=== PATIENT | male | born 1990 | race Caucasian/White ===

== ENCOUNTER 2019-07-30 09:44 | Outpatient (CLI) | payer OTHER ==
--- NOTE | 2019-07-30 10:23 | SLEEP CARE CONSULTATION ---
Information from patient questionnaire entered by Sarah Magaña. I have reviewed and concur with the information entered by Sarah Magaña. This document represents the service I personally performed and the decisions made by me, Kaleb Squires MD, [facility]. History of Present Illness Reason for Visit: New patient Chief Complaint: reports: Snoring, Observed pauses in breathing, Other (TEETH GRINDING) Duration of Symptoms: 5+ YEARS Usual bedtime: 3600-7128 Time it takes to fall asleep: 30 MINUTES Snores at night: Yes Observed to quit breathing while asleep: Yes Sleeps alone due to snoring: No Number of times waking at night: 2-3 Toss, Turn, or Twitch while sleeping: Yes Recalls having dreams: No Usually gets out of bed at: 9824-6503 Feels refreshed in the morning: No Morning headache: Yes (SOMETIMES) Sleepy or fatigued during the day: Yes Ever fallen asleep while driving: No Takes day naps: No Dreams during day naps: No Prior sleep studies: No Additional HPI information: I had the pleasure of seeing Mr. Ureña along with his today regarding the possibility of him having a sleep disorder. As you know, he is a 29 year old gentleman who complains of loud snore, teeth grinding, and observed apneas. The patient tells me that he normally goes to bed around 8:30 - 9 pm, and it takes him approximately 30 minutes to fall asleep. He has been told that he snores loudly and irregularly at night. He has also been observed to stop breathing in his sleep. His can still sleep in the same bed. He can recall waking up on the average of 2 3 times during the night. Most of the time he wakes up because of no reasons. He has awakened occasionally because of his own snoring, choking, and having to gasp for air. There is a lot of tossing and turning in his sleep. He has somniloquy (sleep talking) but not somnambulism (sleep walking). He wears a bruxism mouth guard. Generally there is no recollection of dreams. In the morning he usually gets up out of the bed around 5 - 6 a.m. not feeling refreshed nor rested. He occasional has a morning headache that lasts hours. During the day he complains of feeling sleepy and fatigued. His score on [place] Sleepiness Scale is 13 out of 24. He has never fallen asleep while driving nor has had any accident due to sleepiness. He usually does not take naps during the day. Upon falling asleep during the day he denies having vivid dreams. He has never had sleep paralysis, experienced cataplexy or symptoms of restless leg syndrome. He denies having impaired concentration during the day. 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 Patient is and lives in [place]. Have you smoked in the past 12 months: Yes Cigarettes per day (20/pack): 20 Years of smokin Quit date: 2013 Smoking Pack Years: 9.0 Alcohol use: Yes Alcohol amount and frequency: 1-2 DRINKS, 1-2 TIMES/MONTH Caffeine use: Yes Caffeine amount and frequency: 12 OZ/MORNING Family History Family history of sleep disordered breathing: Yes Family Hx Sleep Apnea: Father: Snoring Allergies and Home Medications Drug allergies reviewed: Yes Home medication list reviewed: Yes Review of Systems Cardiovascular: reports: leg or foot swelling (ON PLANES) Respiratory: denies: shortness of breath, wheeze, sputum production, chronic cough, other Gastrointestinal: reports: heartburn Urinary: denies: incontinence, frequency, urgency, impotence, other Neurological: reports: headaches (MIGRAINES) Psychiatric: denies: Attention Deficit Hyperactivity, anxiety, depression, mood disorder, claustrophobia, other Ear/Nose/Throat: reports: nose bleeds, wisdom teeth removed Endocrine: denies: thyroid disease, history of goiter, sluggishness, too hot or cold, excessive thirst, increased appetite, increased urination, unexplained weakness, other Musculoskeletal: reports: joint pain, neck pain, back pain Physical Exam Vital signs obtained and entered by: Dr. Squires Blood Pressure: 90/50 Cuff size: long Heart Rate: 71 O2 Saturation: 98 Height: 5 ft 8 in Weight (kg): 185 lb Body Mass Index: 28.1 BMI Classification: Overweight Neck circumference: 15 Mood/affect: normal HEENT: No craniofacial malformation Nostrils: patent to airflow Turbinates: normal Septum: midline Mouth and throat: normal Soft palate: long Hard palate: normal Uvula: normal Uvula visualization: 50% Mallampati Class II Tongue: normal in size Tonsils: small Chin and jaw: normal size and position Neck: normal w/o lymphadenopathy or thyromegaly Heart: regular rate and rhythm Lungs: clear bilaterally Abdomen: soft, non-tender Extremities: no edema or clubbing Neurologic: intact, no focal deficits Impression and Plan IMPRESSION: 1. Obstructive Sleep Apnea-Hypopnea Syndrome, as suggested by history of loud and irregular snoring, observed cessation of breath while asleep, frequent awakenings during the night, unrefreshed sleep, morning headache, and daytime hypersomnolence. Narrow oropharynx and obesity are common predisposing factors for obstructive sleep apnea-hypopnea syndrome. Pathophysiology of sleep- disordered breathing was discussed. I recommend proceeding to polysomnography to confirm the diagnosis and to assess severity. If he has significant sleep disordered breathing, a manual CPAP titration study will also be performed to find the optimal treatment pressure. I informed the patient of what the sleep studies involve and after some discussion, he agreed to proceed. Plan: 1. Schedule polysomnography and return in 1 to 2 weeks after the study to discuss result and initiate therapy. 2. Avoid long distance driving or when feeling sleepy. 3. Avoid alcohol, sedative and muscle relaxant around bedtime. 4. Attempt to lose some weight. I spent 100% of this 15 minute visit face to face with the patient with greater than 50% of this was spent time counseling the patient and coordination of care.
[2019-07-30 10:24] VITALS: BP 90/50
== END 2019-07-30 09:45 | disposition home or self-care (01) ==
LOC: SC 09:44
PROVIDERS: ATTEND Internal Medicine Pulmonary Disease
DX: R06.83 Snoring (principal); G47.8 Other sleep disorders; R06.81 Apnea, not elsewhere classified; R51 Headache; G47.10 Hypersomnia, unspecified
CPT/HCPCS: 99203; 99212

== ENCOUNTER 2019-08-28 20:36 | Outpatient (CLI) | payer OTHER | END 2019-08-28 20:37 | disposition home or self-care (01) | LOC: SC 20:36 | PROVIDERS: ATTEND Internal Medicine Pulmonary Disease | DX: R06.83 Snoring (principal) | CPT/HCPCS: 95810 ==

== ENCOUNTER 2019-10-04 13:38 | Outpatient (CLI) | payer OTHER ==
[2019-10-04 15:19] VITALS: BP 108/68
--- NOTE | 2019-10-04 15:19 | SLEEP CARE CONSULTATION ---
Information from patient questionnaire entered by Jazmín Guan. I have reviewed and concur with the information entered by Jazmín Guan. This document represents the service I personally performed and the decisions made by me, Cristina Giang, RN, MSN, [employer]. History of Present Illness Initial [place] Sleepiness Scale score: 13 Current [place] Sleepiness Scale score: 9 Additional HPI information: GALI ARCEO returns with spouse for follow up of the recently performed polysomnography and was informed of the findings.I explained the pathophysiology behind obstructive sleep apnea. Patient does not have sleep apnea and was advised how weight gain could increase the risk of developing sleep apnea in the future. I strongly encouraged the patient to lose some weight. BMI chart reviewed and goals discussed to lose abdominal weight for overall health risks. Patient has mild snoring. Spouse concurs his snore is mild most of time but can be loud at times. I explained that snoring as well as apnea risk can be reduced by weight loss with rationale explained. Weight loss is best achieved with diet consult. Patient instructed to contact PCP for referral if needed. Snoring can also be treated with an oral appliance from a dentist. Advised to check insurance coverage if considers. In addition, an ENT evaluation can be do to see if other treatment is indicated. He does not have difficulty breathing through his nose or nasal congestion. Patient counseled not drink alcohol less than 4 hours before bedtime as it can increase snoring and apnea. Patient does not drink alcohol. Patient was cautioned about risks of drowsy driving until sleepiness symptoms resolve. Patient denies drowsy driving. [facility] patient education on snoring and sleep apnea given and reviewed. No significant periodic leg movements noted on sleep study , however, spouse notices constant twitch for a few minutes at a time and repeat over first couple of hours during sleep with rare kick. He denies restless leg symptoms. He has had sprang his ankle and back strains. He has chronic low back pain. He also reports drinking alot of caffiene during the day of 4 cups of coffee, 1-2 Monsters and 1 mountain dew in evening. I asked why he drinks this much caffiene and if it is to keep alert. He feels that he does not necessarily need to keep alert. He just likes the taste. Sleep Study - Polysomnography Polysomnography findings: The quality of the study is good. The patient had normal sleep efficiency. Except for mild sleep fragmentation, the sleep architecture was normal as well. Respiratory monitoring showed no significant sleep disordered breathing (AHI = 0.9) or hypoxia (noble oxygen saturation of 91%). The rare respiratory events occurred only during supine sleep (supine AHI = 1.3; non-supine = 0.00). Snore was light in intensity. There was no significant periodic leg movement of sleep. Cardiac rhythm was normal sinus rhythm without significant arrhythmia. No abnormal behavior (parasomnia) observed during the night. Allergies and Home Medications Known drug allergies: No Home medication list reviewed: Yes Allergy and home medication list: Nexium 20mg daily Sumitritan prn migraine Physical Exam Blood Pressure: 108/68 Cuff size: long Heart Rate: 86 O2 Saturation: 97 Height: 5 ft 8 in Weight: 188 lb 6.4 oz Body Mass Index: 28.6 BMI Classification: Overweight Impression and Plan 1. Snoring, mild in intensity, but no significant sleep disordered breathing. Patient advised that often weight loss will reduce snoring as well as apnea risk. An oral appliance can also be used for snoring. This would require a dental consultation. Patient cautioned not to use other online appliances as can cause bite issues. Most insurances will not cover. A list of accredited dentists in area and one local dentist who makes oral appliances offered and declined. An ENT consult can also be helpful to determine if any other treatment is an option. At this time, patient would like to work on weight loss to reduce snoring. 2. Periodic limb movement, as observed by spouse noted nightly for first couple of hours of sleep, that does not seem to fragment patients sleep except a couple times a night. NO significant limb movment noted night of study. Periodic limb movement of sleep (PLMS) is characterized by episodes of repetitive limb movements that occur during sleep and usually involve the lower limbs. The etiology is unknown but can be associated with restless leg syndrome (RLS), neuropathy, spinal cord diseases, kidney disease, rheumatological disorders, narcolepsy, obstructive sleep apnea, and REM sleep behavior disorder. Other factors that can increase PLMS and/or RLS are heredity and iron deficiency as reflected by a low serum ferritin level below 50 to 75mcg / L. Several medications can precipitate or aggravate PLMS such as selective serotonin re- uptake inhibitor antidepressants, tricyclic antidepressants, lithium, and dopamine receptor antagonists with the exception of bupropion. Caffeine can also aggravate PLMS and should be avoided. Sleep hygiene methods can also improve sleep as well as lifestyle changes such as regular exercise. Patient was advised that since his leg movements could be waking him at night at home it could be a contributor to his fatigue. Since he has a history of chronic back pain which could be contributing to these movements he is to follow up with PCP for further evaluation and treatment such as physical therapy. I also discussed the impact of his high caffiene intake to his night leg movements observed by spouse and advised to reduce to 1-2 cups of caffiene a day. I also cautioned on health effects of high energy drinks such as cardiac arrhythmia and . He is to abstain or not ingest more than one a day. 3. Fatigue, unknown reason. Currently patient reports a regular sleep schedule and usual sleep of 7-8 hours which is normal range required for optimal mental and physical function. Patient advised to follow up with PCP for further evaluation and agreed with plan. I spent 100% of this 40 minute visit face to face with the patient with greater than 50% of this was spent time counseling the patient and coordination of care.
== END 2019-10-04 13:39 | disposition home or self-care (01) ==
LOC: SC 13:38
PROVIDERS: ATTEND Nurse Practitioner Family
DX: R06.83 Snoring (principal); G47.61 Periodic limb movement disorder; R53.83 Other fatigue
CPT/HCPCS: 99212; 99215